=== PATIENT | male | born 1940 | race Caucasian/White ===

== ENCOUNTER → 2017-02-19 | Outpatient (CLI) | payer MEDICARE, BC | END | disposition home or self-care (01) | LOC: GMAH 11:23 | PROVIDERS: ATTEND Family Medicine | DX: C61 Malignant neoplasm of prostate (principal); E03.9 Hypothyroidism, unspecified ==

== ENCOUNTER 2017-06-26 06:24 | Day surgery (SDC) | payer MEDICARE, BC ==
[~2017-06-26 06:24] MED LIST: LACTATED RINGERS 1,000 ML ONE
[2017-06-26] MEDS ORDERED: LIDOCAINE 1% 10 ML VIAL INJ ONE (07:00)
[2017-06-26] MEDS ORDERED: PROPOFOL 200 MG/20 ML VIAL IV ONE (07:00)
[2017-06-26] MEDS ORDERED: fentaNYL CITRATE INJ 50 MCG/ML AMP ONE (08:36)
[2017-06-26] MEDS ORDERED: MIDAZOLAM INJ 5 MG/5 ML VIAL ONE (08:36)
--- NOTE | 2017-06-26 09:55 | OP ---
DATE OF PROCEDURE: 06/26/17 PREOPERATIVE DIAGNOSIS: 1. Average risk colorectal cancer screen. POSTOPERATIVE DIAGNOSIS: 1. Diverticulosis. 2. Polypectomy in the ascending colon, resected and retrieved using a cold snare. 3. Polypectomy in the hepatic flexure using a cold snare, resected and retrieved. 4. Internal hemorrhoids. 5. Redundancy of sigmoid and ascending colon. PROCEDURE: 1. Colonoscopy. SURGEON: Jelani Brown MD. ANESTHESIA: MAC. PROCEDURE: Informed consent was obtained prior to sedation. The preprocedure cardiopulmonary assessment was satisfactory. The patient was placed in the left lateral decubitus position and was sedated. The tip of the Olympus colonoscope was inserted in the rectum and guided through the entire colon under direct visualization. There was evidence of tortuosity and redundancy in the sigmoid and ascending colon. The ileocecal valve and appendiceal orifice were identified. The cecum appeared normal. The colonoscopy prep was good. There was no evidence of flat polyps or small lesions in the cecum. Slow withdrawal was started at this time. The right colon and hepatic flexure were screened twice on direct and retroflexion view. There was evidence of a 3-mm polyp in the ascending colon that was resected and retrieved using a cold snare. In the hepatic flexure, there was a 4-mm flat polyp that was resected and retrieved with a cold snare. Continuation of slow withdrawal showed evidence of severe diverticulosis in the descending and sigmoid colon. This caused some diverticular stricturing. Continuation of slow, careful withdrawal showed no further polyps. In the rectum, there was evidence of internal hemorrhoids that were found during retroflexion view. The scope was then withdrawn from the patient after suctioning all the gas intraluminally and the procedure was terminated. RECOMMENDATION: 1. Followup path. 2. Repeat colonoscopy based on path in three to five years. 3. Suggest if colonoscopy is repeated to use a pediatric 180 or 190 Olympus colonoscope. 4. Followup with me in 8 weeks. 5. Resume aspirin. Watch for complications like abdominal pain, fever, bleeding or other and present to the Emergency Room immediately. 6. Return to referring doctor as previously scheduled. #[id number] cc: Rafa Chiu MD MTDD
[2017-06-26 14:54] VITALS: BP 136/73; TEMP 97.1; O2SAT 98
== END 2017-06-26 09:50 | disposition home or self-care (01) ==
LOC: AMB 06:24
DX: Z12.11 Encounter for screening for malignant neoplasm of colon (principal); D12.2 Benign neoplasm of ascending colon; D12.3 Benign neoplasm of transverse colon; K57.30 Diverticulosis of large intestine without perforation or abscess without bleeding; K64.8 Other hemorrhoids; Q43.8 Other specified congenital malformations of intestine; E78.00 Pure hypercholesterolemia, unspecified; I10 Essential (primary) hypertension; I25.10 Atherosclerotic heart disease of native coronary artery without angina pectoris; E11.9 Type 2 diabetes mellitus without complications; Z85.46 Personal history of malignant neoplasm of prostate; E66.9 Obesity, unspecified; Z68.29 Body mass index [BMI] 29.0-29.9, adult; Z88.0 Allergy status to penicillin; Z79.82 Long term (current) use of aspirin; Z79.899 Other long term (current) drug therapy
CPT/HCPCS: 00810; 36416; 45385; 82948; 88305; J2250; J3010; J3490; J7120

== ENCOUNTER → 2017-07-17 | Outpatient (CLI) | payer MEDICARE, BC ==
--- NOTE | 2017-07-18 10:42 | RAD ---
EXAM DESCRIPTION: KUB CLINICAL HISTORY: 76 years Male, RENAL STONES COMPARISON: None. FINDINGS: There is a moderate amount of stool and gas scattered throughout the colon. The bowel gas pattern is nonobstructive. There is no suspicious intra-abdominal calcification or mass. Specifically, no renal calculus is identified. The bones are unremarkable. There are multiple surgical clips in the pelvis. IMPRESSION: Postoperative changes in the pelvis without radiographically apparent urinary tract calculus. Electronically signed by: Favian Wagner MD 07/18/2017 10:40 AM CDT
== END ==
LOC: RAD 13:52
PROVIDERS: ATTEND Urology
DX: N20.0 Calculus of kidney (principal); Z98.890 Other specified postprocedural states

== ENCOUNTER 2018-02-20 05:42 | Day surgery (SDC) | payer MEDICARE, BC ==
[2018-02-20] MEDS ORDERED: TROP 1%/CYCLOPEN 1%/PHENYL 2% DROPS ONE (08:44)
[2018-02-20] MEDS ORDERED: MIDAZOLAM INJ 2 MG/2 ML VIAL ONE (12:44)
[2018-02-20] MEDS ORDERED: TOBRAMYCIN SULF 0.3 % OPHT SOL 1 DROP RIGHT_EYE ONE ×3 (15:22→17:05)
[2018-02-20] MEDS: PROPARACAINE 0.5% OPHTH SOL 15 ML BTTL ONE ×2 (15:22→16:45)
[2018-02-20] MEDS ORDERED: DEXAMETHASONE 0.1% OPHTH SOL 1 DROP RIGHT_EYE ONE ×2 (16:53→17:05)
[2018-02-20] MEDS ORDERED: BRIMONIDINE 0.2% OPHTH DROPS RIGHT_EYE ONE ×2 (16:54→17:05)
[2018-02-20 17:57] VITALS: BP 132/77; TEMP 98.7; O2SAT 96
== END 2018-02-20 17:45 | disposition home or self-care (01) ==
LOC: AMB 05:42
PROVIDERS: ATTEND Ophthalmology
DX: H25.11 Age-related nuclear cataract, right eye (principal); E11.36 Type 2 diabetes mellitus with diabetic cataract; Z88.0 Allergy status to penicillin; Z79.84 Long term (current) use of oral hypoglycemic drugs; Z79.82 Long term (current) use of aspirin; Z79.899 Other long term (current) drug therapy
CPT/HCPCS: 00142; 66984; J2250

== ENCOUNTER → 2018-02-24 | Outpatient (CLI) | payer MEDICARE, BC | LOC: GMAH 10:49 | PROVIDERS: ATTEND Family Medicine | DX: E78.2 Mixed hyperlipidemia (principal); E11.9 Type 2 diabetes mellitus without complications; I10 Essential (primary) hypertension; E03.9 Hypothyroidism, unspecified; Z12.5 Encounter for screening for malignant neoplasm of prostate | CPT/HCPCS: 84443; 84550; G0103 ==

== ENCOUNTER 2018-03-06 06:02 | Day surgery (SDC) | payer MEDICARE, BC ==
[2018-03-06] MEDS ORDERED: TROP 1%/CYCLOPEN 1%/PHENYL 2% DROPS ONE (10:26)
[2018-03-06] MEDS ORDERED: PROPARACAINE 0.5% OPHTH SOL 15 ML BTTL ONE (10:26)
[2018-03-06] MEDS ORDERED: MIDAZOLAM INJ 2 MG/2 ML VIAL ONE (12:21)
[2018-03-06] MEDS ORDERED: PROPARACAINE 0.5% OPHTH SOL 15 ML BTTL LEFT_EYE ONE (15:48)
[2018-03-06] MEDS ORDERED: LIDOCAINE 1% PF 2 ML AMP INJ ONE (15:58)
[2018-03-06] MEDS ORDERED: DEXAMETHASONE 0.1% OPHTH SOL 1 DROP LEFT_EYE ONE ×2 (15:58→16:05)
[2018-03-06] MEDS ORDERED: BRIMONIDINE 0.2% OPHTH DROPS LEFT_EYE ONE ×2 (15:59→16:05)
[2018-03-06] MEDS ORDERED: TOBRAMYCIN SULF 0.3 % OPHT SOL 1 DROP LEFT_EYE ONE ×2 (15:59→16:05)
[2018-03-06 16:51] VITALS: BP 151/78; TEMP 96.6; O2SAT 96
== END 2018-03-06 16:45 | disposition home or self-care (01) ==
LOC: AMB 06:02
PROVIDERS: ATTEND Ophthalmology
DX: H25.12 Age-related nuclear cataract, left eye (principal); E11.36 Type 2 diabetes mellitus with diabetic cataract; I10 Essential (primary) hypertension; E66.9 Obesity, unspecified; Z88.0 Allergy status to penicillin; Z87.891 Personal history of nicotine dependence; Z79.82 Long term (current) use of aspirin; Z79.899 Other long term (current) drug therapy
CPT/HCPCS: 00142; 66984; J2250

== ENCOUNTER → 2018-04-07 | Outpatient (CLI) | payer MEDICARE, BC | LOC: GMAH 10:50 | PROVIDERS: ATTEND Family Medicine | DX: E03.9 Hypothyroidism, unspecified (principal) ==

== ENCOUNTER → 2019-03-31 | Outpatient (CLI) | payer MEDICARE, BC | LOC: GMAH 10:28 | PROVIDERS: ATTEND Family Medicine | DX: I10 Essential (primary) hypertension (principal); E11.9 Type 2 diabetes mellitus without complications; Z12.5 Encounter for screening for malignant neoplasm of prostate | CPT/HCPCS: 84443; 84550; G0103 ==

== ENCOUNTER → 2019-10-29 | Outpatient (CLI) | payer MEDICARE, BC ==
--- NOTE | 2019-10-29 11:42 | MRI ---
Study: MRI of the Left Shoulder. Indication: PAIN IN LEFT SHOULDER Technique: Multiplanar, multi sequence MRI of the left shoulder was obtained without intravenous contrast. Comparison: None. Findings: Severe hypertrophic AC joint osteoarthritis. Type I acromion with mild lateral downsloping. Small-volume subacromial/subdeltoid bursal fluid. Supraspinatus and infraspinatus tendinosis. Subtle low to intermediate grade interstitial/articular tearing anterior margin of the supraspinatus tendon insertion with scattered interstitial fissuring throughout both tendons. No full-thickness tear or tendon retraction. Full-thickness, fullwidth subscapularis tendon tear with retraction of torn tendon fibers medial to the level of the glenoid. Surrounding edema noted. Teres minor tendon intact. Moderate intramuscular edema subscapularis muscle belly. Minimal atrophy and grade 1 fatty infiltration rotator cuff musculature. Long head biceps tendinosis and medial dislocation with the tendon lying along the anterior joint line. No rupture. Circumferential labral truncation and degeneration. Minimal glenohumeral joint osteoarthritis. Sprain/partial tear humeral attachment inferior glenohumeral ligament without complete rupture. No acute fracture. Impression: Acute appearing full-thickness, fullwidth retracted subscapularis tendon tear. Sprain/partial tear humeral attachment of the inferior glenohumeral ligament. High-grade supraspinatus and infraspinatus tendinosis with subtle low to intermediate grade interstitial tearing of the anterior supraspinatus tendon insertion and less pronounced mild interstitial fissuring throughout the remainder of both tendon insertions. Long head biceps tendinosis and medial dislocation. Severe hypertrophic AC joint osteoarthritis. Additional findings as above. Electronically signed by: Jose Cruz Callaway MD 10/29/2019 11:40 AM [facility]
== END ==
LOC: MRI 08:00
PROVIDERS: ATTEND Family Medicine
DX: S46.012A Strain of muscle(s) and tendon(s) of the rotator cuff of left shoulder, initial encounter (principal); M75.82 Other shoulder lesions, left shoulder; M75.22 Bicipital tendinitis, left shoulder; M19.012 Primary osteoarthritis, left shoulder

== ENCOUNTER → 2020-07-05 | Outpatient (CLI) | payer MEDICARE, BC | LOC: GMA MATASK 15:07 | PROVIDERS: ATTEND Family Medicine | DX: C61 Malignant neoplasm of prostate (principal); E03.9 Hypothyroidism, unspecified; E11.9 Type 2 diabetes mellitus without complications; E78.2 Mixed hyperlipidemia ==